=== PATIENT | female | born 1990 | race Two or more races ===

== ENCOUNTER 2024-06-03 02:50 | Inpatient (IN) | payer SELFPAY ==
[~2024-06-03] VITALS: Ht 154.9 cm; Wt 45.0 kg
--- NOTE | 2024-06-03 03:27 | ED.PDOC ---
History of Present Illness HPI Comments 34-year-old female presents with a chief complaint of abdominal pain, nausea, and vomiting. Patient speaks [place]ib[place]ian and communication was limited. Patient states that her pain is localized to her epigastric region, radiating to left upper quadrant, and started an hour ago. Patient mentions that she ate tuna p rior to onset of symptoms. She denies use of alcohol or drugs. No other symptoms or modifying factors present at this time. She reports history of C- section 6 years ago. She reports history of epilepsy and vape pen use. (history taken using spanish medical interpreter line.) Chief Complaint: Abdominal Pain Time Seen by MD: 02:59 Reviewed Notes: Medications, Allergies Allergies: Coded Allergies: NO KNOWN ALLERGIES (Unverified , 06/03/24) Information Source: Patient Mode of Arrival: Wheelchair Severity: Moderate Timing: Minutes Duration: Since onset Prehospital treatment: None Vital Signs Vital Signs Date Time Temp Pulse Resp B/P (MAP) Pulse Ox O2 Delivery O2 Flow Rate FiO2 06/03/24 04:29 98.1 52 16 91/55 (67) 100 98.1 Physical Exam General: Awake, lying with eyes closed, responds to verbal, no acute distress Skin: Skin in warm, dry and intact. Appropriate color for ethnicity. Nailbeds pink with no cyanosis. HEENT: The head is normocephalic and atraumatic. Conjunctivae are clear without exudates or hemorrhage. Sclera is non-icteric. EOM are intact. No signs of nystagmus. Eyelids are normal in appearance without swelling or lesions. Oral mucosa is pink and moist Neck: The neck is supple with normal range of motion. No JVD. Cardiac: Heart rate and rhythm are normal. No murmurs, gallops, or rubs are auscultated. Respiratory: No signs of respiratory distress. Lung sounds are clear in all lobes bilaterally without rales, ronchi, or wheezes. Abdominal: Abdomen is soft, positive epigastric and left upper quadrant tenderness. No guarding or rigidity.. Bowel sounds are present and normoactive in all four quadrants. Extremities: Upper and lower extremities are atraumatic in appearance without deformity or edema. Neurological: The patient is awake, alert and oriented to person, place, and time with normal speech. Speech is clear. There is no facial asymmetry. Review of Systems: REVIEW OF SYSTEMS: No fever, no chills, or fatigue HEENT: No sore throat, no earache, no congestion, no neck pain. Cardiac: Positive chest pain. No palpitations. Lungs: Pulses shortness of breath, no cough. GI: Positive abdominal pain, nausea, vomiting and diarrhea. : No dysuria, frequency, or urgency. No hematuria. Musculoskeletal: No joint pain , no joint swelling, no extremity edema. Skin: No rash, no itching. 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 Was a procedure done?: No EKG EKG : Pulse Rate (adult): 59 [place]: Normal Cardiac Rhythm: NSR Block: None Hypertrophy: None ST: Normal Comments Low voltage, precordial leads RSR in V1 or V2, right VCD or RVH No STEMI Differential Dx Considerations may include: Differential diagnoses considered include: Pancreatitis, peptic ulcer disease/GERD, gastritis, gastroenteritis, acute coronary syndrome, urinary tract infection, , biliary disease, pneumonia, viral syndrome, food poisoning, other X-Ray, Labs, Meds, VS Vital Signs Date Time Temp Pulse Resp B/P (MAP) Pulse Ox O2 Delivery O2 Flow Rate FiO2 06/03/24 04:29 98.1 52 16 91/55 (67) 100 98.1 06/03/24 03:37 59 06/03/24 03:27 59 06/03/24 02:55 98.5 60 18 94/50 (65) 100 Lab Test 06/03/24 03:55 Range/Units White Blood Count 6.9 4.4-10.8 10^3/uL Red Blood Count 4.07 4.0-5.20 10^6/uL Hemoglobin 12.9 12.2-16.2 g/dL Hematocrit 38.2 36.0-46.0 % Mean Corpuscular Volume 93.8 80.0-100.0 fL Mean Corpuscular Hemoglobin 31.6 28.0-32.0 pg Mean Corpuscular Hemoglobin Concent 33.7 32.0-36.0 g/dL Red Cell Distribution Width 12.8 11.8-14.3 % Platelet Count 229 140-450 10^3/uL Mean Platelet Volume 7.5 6.9-10.8 fL Neutrophils (%) (Auto) 51.8 37.0-80.0 % Lymphocytes (%) (Auto) 34.9 10.0-50.0 % Monocytes (%) (Auto) 10.9 0.0-12.0 % Eosinophils (%) (Auto) 1.8 0.0-7.0 % Basophils (%) (Auto) 0.6 0.0-2.0 % Neutrophils # (Auto) 3.6 1.6-8.6 10 ^3/uL Lymphocytes # (Auto) 2.4 0.4-5.4 10 ^3/uL Monocytes # (Auto) 0.8 0-1.3 10 ^3/uL Eosinophils # (Auto) 0.1 0-0.8 10 ^3/uL Basophils # (Auto) 0 0-0.2 10 ^3/uL Nucleated Red Blood Cells 0.2 % Sodium Level 143 136-145 mmol/L Potassium Level 3.9 3.5-5.1 mmol/L Chloride Level 108 H 98-107 mmol/L Carbon Dioxide Level 25 20-31 mmol/L Anion Gap 10 5-15 Blood Urea Nitrogen 18 9-23 mg/dL Creatinine 0.79 0.550-1.02 mg/dL Glomerular Filtration Rate Calc 102 >90 mL/min BUN/Creatinine Ratio 22.8 H 10.0-20.0 Serum Glucose 101 74-106 mg/dL Calcium Level 9.7 8.7-10.4 mg/dL Total Bilirubin 0.4 0.2-1.0 mg/dL Aspartate Amino Transferase (AST) 19 13-40 U/L Alanine Aminotransferase (ALT) 19 7-40 U/L Alkaline Phosphatase 51 46-116 U/L Troponin I High Sensitivity < 3 L </=34 ng/L Total Protein 6.3 5.7-8.2 g/dL Albumin 4.2 3.2-4.8 g/dL Lipase 51 12-53 U/L Beta HCG, Quantitative < 0.0 L 1.5-4.2 mIU/mL Plasma/Serum Blood Alcohol < 3.0 <10 mg/dL Current Medications Medications (Trade) Dose Ordered Sig/Umm Route Start Time Stop Time Status Last Admin Ondansetron HCl (Zofran Po) 4 mg ONCE ONCE PO 06/03/24 03:45 06/03/24 03:46 DC 06/03/24 04:36 Al Hydrox/Mg Hydrox/Simethicone (Maalox Plus) 30 ml ONCE ONCE PO 06/03/24 04:15 06/03/24 04:22 DC 06/03/24 04:35 Lidocaine HCl (Xylocaine 2% Viscous) 10 ml ONCE ONCE PO 06/03/24 04:15 06/03/24 04:22 DC 06/03/24 04:35 Time of 1ST Reevaluation: 03:29 Reevaluation 1ST: Unchanged Patient Education/Counseling: Diagnosis, Treatment, Prognosis Family Education/Counseling: No Family Present Departure 1 Departure Time of Disposition: 05:38 Impression: Primary Impression: Abdominal pain Additional Impression: Altered mental status Disposition: 30 STILL A PATIENT Condition: Stable Comments 34-year-old female with abdominal pain, nausea, vomiting, diarrhea, altered mental status. Side to oncoming provider pending COVID, flu results, urinalysis results, imaging results. Chest x-ray shows possible viral pneumonitis. Critical Care Note Critical Care Time?: No Stability Stability form required: No I personally scribed for ABENA SHARP MD ([email or web address]) on 06/03/24 at 03:27. Electronically submitted by Jude Orlando ([email or web address]). I personally scribed for ABENA SHARP MD ([email or web address]) on 06/03/24 at 03:37. Electronically submitted by Jude Orlando ([email or web address]). ABENA SHARP MD Jun 03, 2024 03:27
[2024-06-03] MEDS: KETOROLAC TROMETH 30 MG/ML 1ML VIAL IM ONE (03:45)
[2024-06-03 04:17] LABS: Basophils # (auto) 0 10 ^3/uL (0-0.2); Basophils % (auto) 0.6 % (0.0-2.0); Eosinophils # (auto) 0.1 10 ^3/uL (0-0.8); Eosinophils % (auto) 1.8 % (0.0-7.0); Hematocrit 38.2 % (36.0-46.0); Hemoglobin 12.9 g/dL (12.2-16.2); Lymphocytes # (auto) 2.4 10 ^3/uL (0.4-5.4); Lymphocytes % (auto) 34.9 % (10.0-50.0); Mean Corpuscular Hemoglobin 31.6 pg (28.0-32.0); Mean Corpuscular Hgb Conc. 33.7 g/dL (32.0-36.0); Mean Corpuscular Volume 93.8 fL (80.0-100.0); Monocytes # (auto) 0.8 10 ^3/uL (0-1.3); Monocytes % (auto) 10.9 % (0.0-12.0); Neutrophils # (auto) 3.6 10 ^3/uL (1.6-8.6); Neutrophils % (auto) 51.8 % (37.0-80.0); Nucleated Red Blood Cells % 0.2 %; Platelet Count (auto) 229 10^3/uL (140-450); Red Blood Cells 4.07 10^6/uL (4.0-5.20); Red Cell Distribution Width 12.8 % (11.8-14.3); White Blood Cell 6.9 10^3/uL (4.4-10.8)
[2024-06-03 04:29] VITALS: BP 91/55; PULSE 52; RESP 16; TEMP 98.1; O2SAT 100
[2024-06-03 04:30] LABS: Alanine Aminotransferase 19 U/L (7-40); Alkaline Phosphatase 51 U/L (46-116); Anion Gap 10 (5-15); Aspartate Aminotransferase 19 U/L (13-40); BUN/Creatinine Ratio 22.8 (10.0-20.0); Blood Urea Nitrogen 18 mg/dL (9-23); Calcium 9.7 mg/dL (8.7-10.4); Carbon Dioxide 25 mmol/L (20-31); Glucose 101 mg/dL (74-106); Lipase 51 U/L (12-53); Potassium 3.9 mmol/L (3.5-5.1); Sodium 143 mmol/L (136-145)
[2024-06-03 04:31] LABS: Albumin 4.2 g/dL (3.2-4.8); Bilirubin, Total 0.4 mg/dL (0.2-1.0); Total Protein 6.3 g/dL (5.7-8.2)
[2024-06-03] MEDS: LIDOCAINE VISCOUS 2% 15ML UD PO ONE (04:35)
[2024-06-03] MEDS: MAALOX PLUS or MAALOX 30 ML PO ONE (04:35)
[2024-06-03] MEDS: ONDANSETRON ODT 4 MG TAB PO ONE (04:36)
[2024-06-03 04:39] LABS: Chloride 108 mmol/L (98-107)
--- NOTE | 2024-06-03 04:50 | DVH ---
CHEST RADIOGRAPH Indication: cp sob Technique: Single frontal view of the chest was obtained COMPARISON: None FINDINGS: Lines and Tubes: None Lungs: Mild congestion. Pleura: No effusion. No pneumothorax. Cardiomediastinal contours: Unremarkable Bones: Unremarkable IMPRESSION: Mild congestion. Possible viral pneumonitis.
--- NOTE | 2024-06-03 05:48 | ECG ---
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
--- NOTE | 2024-06-03 06:11 | DVH ---
Exam: CT CT AB PEL WO CON-NO ORAL OR IV History: Abdominal pain Comparison Study: None Technique: Multidetector spiral CT of the abdomen was performed from lung bases to pubic symphysis. Imaging was performed without IV contrast. Axial, coronal and sagittal multiplanar reformats were ob tained from the axial data set by the technologist. Radiation Dose : 1. Abdomen/Pelvis: CTDIvol 5.1 mGy, DLP 290 mGy*cm. Findings: Evaluation of solid organs is limited due to lack of intravenous contrast use. Lung Bases: No acute or significant lung base finding. Normal heart size. No pleural or pericardial effusion. Liver: The liver is normal in size. No focal lesions. Gallbladder and Biliary Tree: Unremarkable Spleen: Unremarkable Pancreas: The pancreas is grossly normal in appearance. Adrenal Glands: Unremarkable Kidneys: Kidneys are grossly normal without calculi or hydronephrosis. Bladder: Grossly unremarkable for degree of distention. Bowel: Mildly distended stomach. Moderate volume colonic stool. The appendix is not visualized; brown diana, no secondary findings of acute appendicitis identified. Ascites: Absent Lymphadenopathy: No mesenteric, retroperitoneal or periportal lymphadenopathy. Abdominal Wall and Mesentery: Unremarkable. Vasculature: The visualized abdominal aorta is normal in size and caliber. Evaluation of abdominal a nd pelvic vessels is limited due to lack of intravenous contrast. Pelvic Organs: Unremarkable Musculoskeletal: No aggressive focal bony lesions, acute fractures or dislocation. IMPRESSION: Mildly distended stomach. Moderate volume colonic stool. Radiation optimization: All CT scans at this facility use at least one of these dose optimization sarah hniques: automated exposure control mA and/or kV adjustment per patient size (includes targeted exam s where dose is matched to clinical indication) or iterative reconstruction.
[2024-06-03 06:52] LABS: Urine Bacteria FEW /hpf (None Seen); Urine Blood Negative /uL (Negative); Urine Clarity Clear (Clear); Urine Color Light-Yellow (Yellow); Urine Mucus FEW (None Seen); Urine Protein, UAD Negative (Negative); Urine Specific Gravity 1.021 (1.001-1.035); Urine Urobilinogen Normal (Negative); Urine WBC 1 /hpf (0 - 5)
[2024-06-03 07:11] LABS: Amphetamine Screen, Urine Pos (NEGATIVE)
[2024-06-03 07:12] LABS: Benzodiazephine Screen, Urine Neg (NEGATIVE)
[2024-06-03 07:13] LABS: Barbiturate Scree,Urine Neg (NEGATIVE); Cocaine Screen, Urine Neg (NEGATIVE)
[2024-06-03 07:14] LABS: Cannabinoid Screen, Urine Neg (NEGATIVE); Opiate Scree,Urine Neg (NEGATIVE); Phencyclidine Screen, Urine Neg (NEGATIVE)
[2024-06-03 07:40] LABS: Rapid Influenza A Negative (Negative); Rapid Influenza B Negative (Negative)
[2024-06-03 07:41] LABS: COVID19 ANTIGEN SOFIA FIA NEGATIVE (NEGATIVE)
[2024-06-03] MEDS ORDERED: MORPHINE SULFATE INJ 2 MG/ml SYRG IV PRN (08:30)
[2024-06-03] MEDS ORDERED: ACETAMINOPHEN 325 MG TAB PO PRN (08:30)
[2024-06-03] MEDS ORDERED: DOCUSATE SOD 100 MG CAP PO PRN (08:30)
[2024-06-03] MEDS ORDERED: LORazepam 0.5 MG TAB PO PRN (08:30)
[2024-06-03] MEDS ORDERED: ONDANSETRON HCL 4 MG/2 ML VIAL IV PRN (08:30)
[2024-06-03] MEDS ORDERED: TEMAZEPAM 15 MG CAP PO PRN (08:30)
[2024-06-03] MEDS ORDERED: MAALOX PLUS or MAALOX 30 ML PO PRN (08:30)
[2024-06-03] MEDS ORDERED: HYDROcodone-ACET 5/325MG TAB PO PRN (08:30)
[2024-06-03] MEDS ORDERED: SODIUM CHLORIDE 0.9% 1,000 ML IV SCH (08:30)
--- NOTE | 2024-06-03 08:50 | DVHHP2 ---
History of Present Illness Reason for Visit: Abdominal pain History of Present Illness 34-year-old female with a past medical history of severe drug abuse including methamphetamine use comes to the ED patient is mostly Lebanese-speaking with limited communication but states that she has been having abdominal pain only other past medical history involves a and a distant history of status epilepsy not currently on medication for no other stated history patient was evaluated in the ED believed to have abdominal pain that was intractable and possibly secondary to the use of medications including Street altering in mind altering medications and noted to also have a UTI patient at this point in time was recommended for inpatient admission further evaluation. Drugs: Other (Methamphetamine) Review of Systems Constitutional: Yes: Weakness; No: Fever, Chills, Sweats, Malaise, Other Eyes: No: Pain, Vision change, Conjunctivae inflammation, Eyelid inflammation, Other, Redness ENT: No: Ear pain, Ear discharge, Nose pain, Nose discharge, Nose congestion, Mouth pain, Mouth swelling, Throat pain, Throat swelling, Other Respiratory: Cough, Dry, Shortness of breath; No: SOB with excertion, Wheezing, Hemoptysis, Pleuritic Pain, Sputum, Wheezing, Other Cardiovascular: No: Chest Pain, Palpitations, Orthopnea, Paroxysmal Noc. Dyspnea, Edema, Lt Headedness, Other Gastrointestinal: No: Nausea, Vomiting, Abdominal Pain, Diarrhea, Constipation, Melena, Hematochezia, Other Genitourinary: No Dysuria, No Frequency, No Incontinence, No Hematuria, No Retention, No Other Musculoskeletal: No: other, neck pain, shoulder pain, arm pain, back pain, hand pain, leg pain, foot pain Skin: No: Rash, Lesions, Jaundice, Bruising, Other Neurological: No: Weakness, Numbness, Incoordination, Change in speech, Confusion, Seizures, Other Allergies: Coded Allergies: NO KNOWN ALLERGIES (Unverified , 06/03/24) Exam Vital Signs Vital Signs Date Time Temp Pulse Resp B/P (MAP) Pulse Ox O2 Delivery O2 Flow Rate FiO2 06/03/24 04:29 98.1 52 16 91/55 (67) 100 98.1 General Appearance: Alert, Oriented X3, Cooperative HEENT: Atraumatic, PERRLA, EOMI Respiratory: Clear to auscultation, Normal air movement Cardiovascular: Regular rate, Normal S1, Normal S2 Abdominal: Normal bowel sounds, Soft, No tenderness Extremities: No clubbing, No cyanosis Skin: No rashes, No breakdown Neuro: Normal gait, Normal speech Psych/Mental Status: Mood NL Labs/Xrays Labs Test 06/03/24 06:26 06/03/24 05:15 06/03/24 03:55 Range/Units Urine Color Light-yellow Yellow Urine Clarity Clear Clear Urine pH 6.0 5.0-9.0 Urine Specific [place] 1.021 1.001-1.035 Urine Protein Negative Negative Urine Ketones Negative Negative Urine Blood Negative Negative /uL Urine Nitrite Negative Negative Urine Bilirubin Negative Negative Urine Urobilinogen Normal Negative mg/dL Urine Leukocyte Esterase Negative Negative /uL Urine RBC 1 0 - 4 /hpf Urine WBC 1 0 - 5 /hpf Urine Squamous Epithelial Cells Few <5 /hpf Urine Bacteria Few H None Seen /hpf Urine Mucus Few None Seen Urine Glucose Normal Normal mg/dL Urine Opiates Screen Neg NEGATIVE Urine Fentanyl Screen Neg NEGATIVE Urine Barbiturates Screen Neg NEGATIVE Urine Phencyclidine Screen Neg NEGATIVE Urine Amphetamines Screen Pos NEGATIVE Urine Benzodiazepines Screen Neg NEGATIVE Urine Cocaine Screen Neg NEGATIVE Urine Cannabinoids Screen Neg NEGATIVE Influenza Type A Antigen Negative Negative Influenza Type B Antigen Negative Negative SARS-CoV-2 Antigen (Rapid) Negative NEGATIVE White Blood Count 6.9 4.4-10.8 10^3/uL Red Blood Count 4.07 4.0-5.20 10^6/uL Hemoglobin 12.9 12.2-16.2 g/dL Hematocrit 38.2 36.0-46.0 % Mean Corpuscular Volume 93.8 80.0-100.0 fL Mean Corpuscular Hemoglobin 31.6 28.0-32.0 pg Mean Corpuscular Hemoglobin Concent 33.7 32.0-36.0 g/dL Red Cell Distribution Width 12.8 11.8-14.3 % Platelet Count 229 140-450 10^3/uL Mean Platelet Volume 7.5 6.9-10.8 fL Neutrophils (%) (Auto) 51.8 37.0-80.0 % Lymphocytes (%) (Auto) 34.9 10.0-50.0 % Monocytes (%) (Auto) 10.9 0.0-12.0 % Eosinophils (%) (Auto) 1.8 0.0-7.0 % Basophils (%) (Auto) 0.6 0.0-2.0 % Neutrophils # (Auto) 3.6 1.6-8.6 10 ^3/uL Lymphocytes # (Auto) 2.4 0.4-5.4 10 ^3/uL Monocytes # (Auto) 0.8 0-1.3 10 ^3/uL Eosinophils # (Auto) 0.1 0-0.8 10 ^3/uL Basophils # (Auto) 0 0-0.2 10 ^3/uL Nucleated Red Blood Cells 0.2 % Sodium Level 143 136-145 mmol/L Potassium Level 3.9 3.5-5.1 mmol/L Chloride Level 108 H 98-107 mmol/L Carbon Dioxide Level 25 20-31 mmol/L Anion Gap 10 5-15 Blood Urea Nitrogen 18 9-23 mg/dL Creatinine 0.79 0.550-1.02 mg/dL Glomerular Filtration Rate Calc 102 >90 mL/min BUN/Creatinine Ratio 22.8 H 10.0-20.0 Serum Glucose 101 74-106 mg/dL Calcium Level 9.7 8.7-10.4 mg/dL Total Bilirubin 0.4 0.2-1.0 mg/dL Aspartate Amino Transferase (AST) 19 13-40 U/L Alanine Aminotransferase (ALT) 19 7-40 U/L Alkaline Phosphatase 51 46-116 U/L Troponin I High Sensitivity < 3 L </=34 ng/L C-Reactive Protein High Sensitivity 0.13 <1.0 mg/dL Total Protein 6.3 5.7-8.2 g/dL Albumin 4.2 3.2-4.8 g/dL Lipase 51 12-53 U/L Beta HCG, Quantitative < 0.0 L 1.5-4.2 mIU/mL Plasma/Serum Blood Alcohol < 3.0 <10 mg/dL Assessment/Plan Assessment/Plan Admit to [facility] Abdominal pain suspected source to be UTI Changes in mentation patient is positive for methamphetamines IV hydration Monitor for acute signs of withdrawal IV antibiotics to cover the UTI P.o. vitamins P.o. B12 thiamine and folate for coverage No acute respiratory noted changes including negative for COVID negative for influenza No stated home medications we will place an order of p.r.n. Ativan versus p.r.n. Keppra for possible breakthrough seizures Plan discussed with: Patient My Orders Orders - OLEG SORENSEN MD Procedure Category Date Status Time Ceftriaxone 1gm/50ml [facility] 06/03/24 Logged D5w (Rocephin) 10:00 Admit ADMIT 06/03/24 Transmitted 08:29 Code Status CODE 06/03/24 Transmitted 08:29 Vital Signs [facility] 06/03/24 In Process 08:29 Review Orders With [facility] 06/03/24 In Process Adm.Md 08:29 Regular Diet DIET 06/03/24 Transmitted Breakfast Sodium Chloride 0.9% PHA 06/03/24 Logged 08:30 Lorazepam Tablet [facility] 06/03/24 Logged (Ativan Tablet) 08:30 Alum & Mag PHA 06/03/24 Logged Hydrox-Simethicone 08:30 Docusate Sodium [facility] 06/03/24 Logged Capsule (Colace 08:30 Acetaminophen Tablet [facility] 06/03/24 Logged (Tylenol Tablet) 08:30 Temazepam (Restoril) PHA 06/03/24 Logged 08:30 Notify Md Of Changes [facility] 06/03/24 In Process From Base 08:29 Advance Directive [facility] 06/03/24 In Process 08:29 Basic Metabolic Panel LAB 06/04/24 Verified 04:00 Complete Blood Count LAB 06/04/24 Verified 04:00 Patient Condition ORDERS 06/03/24 Transmitted 08:29 Allergies [facility] 06/03/24 In Process 08:29 Hydrocodone-Acet [facility] 06/03/24 Logged 5/325mg Tab ([place] 08:30 Ondansetron Hcl [facility] 06/03/24 Logged (Zofran) 08:30 Morphine Sulfate [facility] 06/03/24 Logged Injection 08:30 Notify Md Of Changes [facility] 06/03/24 In Process From Base 08:29 Oxygen By Nasal RT 06/03/24 Transmitted Cannula 08:29 Problem List: (1) Drug abuse, amphetamine type (2) Abdominal pain (3) Altered mental status Date of Service: Jun 03, 2024 Billing Provider: OLEG SORENSEN MD Common Visit Codes: [id number] INP/OBS CARE (HIGH) OLEG SORENSEN MD Jun 03, 2024 08:50
[2024-06-03] MEDS ORDERED: cefTRIAXone 1GM/50ML D5W 50 ML IV SCH (10:00)
== END 2024-06-03 09:55 | disposition left against medical advice (07) | DRG 690 ==
LOC: ER 02:50 → OVERFLOW 08:29
PROVIDERS: ADMIT Hospitalist; ATTEND Hospitalist
DX: N39.0 Urinary tract infection, site not specified (principal); G40.909 Epilepsy, unspecified, not intractable, without status epilepticus; F17.200 Nicotine dependence, unspecified, uncomplicated; Z20.822 Contact with and (suspected) exposure to COVID-19; Z98.891 History of uterine scar from previous surgery
CPT/HCPCS: 36415; 71045; 74176; 80053; 80307; 80320; 81001; 83690; 84484; 84702; 85025; 86141; 87426; 87804; 93005; G0378; J1885; Q0162